=== PATIENT | female | born 1970 | race African-American/Black ===

== ENCOUNTER 2019-08-14 17:06 | Emergency (ER) | payer OTHER ==
[~2019-08-14] VITALS: Ht 167.6 cm; Wt 81.2 kg
[2019-08-14 18:02] VITALS: BP_SYST 143
--- NOTE | 2019-08-14 18:02 | NUR ---
Patient triaged and placed in waiting room. VSS and patient appears in no acute distress at this time. Accompanied by self, awaiting available bed, and MD notified of need for MSE.
--- NOTE | 2019-08-14 19:40 | NUR ---
RUBY Felix in [facility] examining patient.
--- NOTE | 2019-08-14 19:41 | NUR ---
placed in hallway for exam
--- NOTE | 2019-08-14 19:42 | NUR ---
patient brought in complaining of bilateral leg pain x 2 weeks. Patient has history of MS. Pain 09/01. No other complaints/injuries per patient or as noted. will continue to monitor.
[2019-08-14 19:43] VITALS: BP_SYST 136
--- NOTE | 2019-08-14 19:43 | NUR ---
Patient given written and verbal discharge instructions and verbalizes understanding. ER PA discussed with patient the results and treatment provided. Patient in stable condition. ID arm band removed. Rx of Avonex given. Patient educated on pain management and to follow up with PMD. Pain Scale 0/10 Opportunity for questions provided and answered. Medication side effect fact sheet provided.
== END 2019-08-14 19:43 | disposition home or self-care (01) ==
LOC: SED 17:06
DX: G35 Multiple sclerosis (principal); I10 Essential (primary) hypertension; Z90.49 Acquired absence of other specified parts of digestive tract
CPT/HCPCS: 99283

== ENCOUNTER 2019-09-13 09:13 | Outpatient (CLI) | payer OTHER ==
[2019-09-13] MEDS ORDERED: GADOPENTETATE DIMEGLUMINE 5 ML VIAL IV ONE (09:48)
== END 2019-09-13 21:07 | disposition home or self-care (01) ==
LOC: SMI 09:13
PROVIDERS: ATTEND Psychiatry & Neurology Neurology
DX: G35 Multiple sclerosis (principal)
CPT/HCPCS: 72141; A9579